=== PATIENT | female | born 1975 | race Caucasian/White ===

== ENCOUNTER 2020-10-12 04:07 | Emergency (ER) | payer OTHER ==
[~2020-10-12] VITALS: Ht 167.6 cm; Wt 86.0 kg
[2020-10-12] MEDS ORDERED: AMOXICILLIN875 MG PO (04:33)
[2020-10-12 05:00] VITALS: BP 130/67
== END 2020-10-12 05:00 | disposition home or self-care (01) | DRG 153 ==
LOC: ED 04:07
DX: J03.90 Acute tonsillitis, unspecified (principal); K21.9 Gastro-esophageal reflux disease without esophagitis

== ENCOUNTER 2023-01-11 10:29 | Emergency (ER) | payer OTHER ==
[~2023-01-11] VITALS: Ht 167.6 cm; Wt 82.5 kg
[~2023-01-11 10:29] MED LIST: AMOXICILLIN875 MG PO
[2023-01-11 10:50] VITALS: BP 132/88
[2023-01-11] MEDS ORDERED: NEXIUM40 M1 PO (10:57)
[2023-01-11 12:22] VITALS: BP 132/79
[2023-01-11 14:44] VITALS: BP 146/86
[2023-01-11 14:45] VITALS: BP 138/86
[2023-01-11 15:42] LABS: URINE BILIRUBIN - DIPSTICK Negative (NEGATIVE); URINE BLOOD DIPSTICK Negative (NEGATIVE); URINE GLUCOSE - DIPSTICK Negative (NEGATIVE); URINE KETONE Negative (NEGATIVE); URINE LEUK ESTERASE Negative (NEGATIVE); URINE NITRITE - DIPSTICK Negative (Negative); URINE PROTEIN - DIPSTICK Negative (NEG-TRACE); URINE SPECIFIC GRAVITY 1.025; URINE UROBILINOGEN - DIPSTICK 0.2 E.U./dL (0.2)
[2023-01-11 15:44] LABS: URINE COLOR Yellow
[2023-01-11] MEDS ORDERED: CIPROFLOXACN500 MG PO (16:04)
[2023-01-11 16:07] VITALS: BP 138/86
== END 2023-01-11 16:28 | disposition home or self-care (01) | DRG 392 ==
LOC: ED 10:29
PROVIDERS: Family Medicine
DX: K57.90 Diverticulosis of intestine, part unspecified, without perforation or abscess without bleeding (principal)